=== PATIENT | male | born 1995 | race African-American/Black ===

== ENCOUNTER 2025-01-16 10:09 | Emergency (ER) | payer BC, MEDICAID ==
[~2025-01-16] VITALS: Ht 172.7 cm; Wt 99.0 kg
[2025-01-16 10:25] VITALS: O2SAT 100
[2025-01-16] MEDS ORDERED: AMOX1TAB16 MT (14:18)
[2025-01-16 14:46] VITALS: BP 121/67; PULSE 88; RESP 18; TEMP 36.9; O2SAT 99
== END 2025-01-16 14:47 | disposition home or self-care (01) ==
LOC: ER 10:09
DX: K08.89 Other specified disorders of teeth and supporting structures (principal)
CPT/HCPCS: 99283